=== PATIENT | female | born 1950 | race Caucasian/White ===

== ENCOUNTER 2019-07-05 23:22 | Emergency (ER) | payer MEDICARE, OTHER, SELFPAY ==
[2019-07-05 23:23] VITALS: BP 124/85; PULSE 90; RESP 18; TEMP 36.6; O2SAT 99; BMI 26.3
--- NOTE | 2019-07-06 00:44 | ED.VIS.UPPEX ---
History of Present Illness Chief Complaint: Laceration Informant: Patient Occurred: Hours - 0.5 Mechanism/Context: Incised Context: Sudden Onset Timing: Continuous Quality of Pain: - - sore Location: right hand Current Severity: Mild Maximum Severity: Mild Worsened by: palpation Relieved by: leaving alone Associated Symptoms: Negative for: Parasthesia, Weakness, Loss of Funtion Narrative: Washing dishes, a glass broke and cut her in the hand. [id number]. 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 Tetanus Immunization: Unknown Past Medical History - Allergies and Home Meds Allergies/Adverse Reactions: Allergies barley Allergy (Verified 07/05/19 23:25) Hives tetanus and diphtheria toxoids Allergy (Verified 07/05/19 23:25) Other Primary Care Physician: Holly Adame MD [Primary Care Provider] - Lives: Spouse/ Significant Other Smoking Status: Never smoker Review of Systems Musculoskeletal: Reports: Extremity Pain. Denies: Swelling Skin: Denies: Rash Neurological: Denies: Weakness, Numbness Physical Exam Vital Signs/Narrative: Vital Signs Temp Pulse Resp BP Pulse Ox 07/05/19 23:23 97.9 F 90 18 124/85 H 99 General: Well nourished, Well developed Head: Normocephalic, Atraumatic Extremeties: Mildly tender at laceration right index finger, no bony tenderness. Full range of motion. Extensor, FDP, FDS intact. Laceration is not open enough to discern whether the extensor guerrero was violated, the laceration is to the radial aspect of the finger/MCPJ. Skin: Normal color, Trauma - 3cm clean, full-thickness in part and partial thickness at sides, curvilinear lac at radial aspect of right index finger MCPJ area; does not involve webspace by thumb. Neurological: Alert, Oriented x3, Cranial nerves II-XII grossly intact, Normal Strength, Normal Sensation, Normal Gait Psychological: Normal affect, Normal Mood Diagnostic/Tx/Re-eval - Medical Decision Making After locally anesthetizing with topical let, which provided good anesthesia, the laceration was repaired. See procedure note below. 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 Advised suture removal in 7-10 days. Procedures - Lacerations R hand Length: 3 cm Depth: Sub Q Shape: Flap - curved Prep: Sterile Conditions, Chlorhexadine Laceration repair: Irrigated, Lidocaine - topical LET only Irrigated (ml): 30 Number of Sutures/Jimmie: 6 Suture Information: Ethilon, Simple, 5-0 ED Disposition - Plan for ED Patient: Disposition: Home or Assisted Living Diagnosis: Laceration of hand, right Instructions: LACERATION, Hand Referrals: Holly Adame MD [Primary Care Provider] - (7-10 days for wound reevaluation & suture removal)
[2019-07-06] MEDS: Lidocaine/Epi/Tetracaine 50 ML 1 APPLIC TOPICAL (00:55)
[2019-07-06 01:38] VITALS: BP 126/80; PULSE 76; RESP 16; O2SAT 99
== END 2019-07-06 01:39 | disposition home or self-care (01) ==
PROVIDERS: Emergency Provider Emergency Medicine; Family Provider Internal Medicine; PCP Internal Medicine
DX: S61.210A Laceration without foreign body of right index finger without damage to nail, initial encounter (principal); W25.XXXA Contact with sharp glass, initial encounter; Y93.G1 Activity, food preparation and clean up; Y92.9 Unspecified place or not applicable
CPT/HCPCS: 12002; 99284